=== PATIENT | female | born 1935 | race Caucasian/White ===

== ENCOUNTER → 2017-03-05 | Outpatient (CLI) | payer OTHER ==
[~2017-03-05] MED LIST: AMIT50TA3 PO; ASPCH81X PO; INSHI7030 SC; INSHRI SC; NAPR220T40 PO; OTC ALLERGY
[2017-03-05 13:11] LABS: ESTIMATED AVERAGE GLUCOSE 154 mg/dl; HA1C FLAG Normal (Normal)
[2017-03-05 14:12] LABS: ALB/GLOB RATIO 1.2 (0.9-2); ALKALINE PHOSPHATASE 42 U/L (45-117); ALT/SGPT 59 U/L (12-78); AST/SGOT 39 U/L (15-37); BLOOD UREA NITROGEN 21 mg/dl (7-18); BUN/CREATININE RATIO 30.7 (10-20); CALCIUM 8.7 mg/dl (8.5-10.1); CARBON DIOXIDE 28 mmol/L (21-32); CHLORIDE 112 mmol/L (98-107); CHOLESTEROL 147 mg/dl (0-200); CHOLESTEROL/HDL RATIO 2.3; CREATININE 0.67 mg/dl (0.60-1.20); GLUCOSE 85 mg/dl (70-99); HDL CHOLESTEROL 65 mg/dl; POTASSIUM 3.8 mmol/L (3.5-5.1); SODIUM 145 mmol/L (136-145)
[2017-03-05 14:16] LABS: LDL CHOLESTEROL CALCULATED 67 mg/dl; TRIGLYCERIDES 74 mg/dl (0-150); VERY LOW DENSITY LIPOPROT CALC 15 mg/dl
== END | disposition home or self-care (01) ==
LOC: C.LABPVFM 08:02
PROVIDERS: ATTEND Nurse Practitioner Family
DX: M79.1 Myalgia (principal); E78.5 Hyperlipidemia, unspecified; E11.59 Type 2 diabetes mellitus with other circulatory complications; I10 Essential (primary) hypertension

== ENCOUNTER → 2017-06-19 | Outpatient (CLI) | payer OTHER | END | disposition home or self-care (01) | LOC: C.LABPVFM 10:04 | PROVIDERS: ATTEND Nurse Practitioner Family | DX: E55.9 Vitamin D deficiency, unspecified (principal) ==

== ENCOUNTER → 2017-09-03 | Outpatient (CLI) | payer OTHER ==
[2017-09-03 13:30] LABS: ALT/SGPT 50 U/L (12-78); AST/SGOT 29 U/L (15-37); BLOOD UREA NITROGEN 17 mg/dl (7-18); BUN/CREATININE RATIO 24.1 (10-20); CALCIUM 8.4 mg/dl (8.5-10.1); CARBON DIOXIDE 27 mmol/L (21-32); CHLORIDE 111 mmol/L (98-107); CREATININE 0.72 mg/dl (0.60-1.20); GLUCOSE 112 mg/dl (70-99); HDL CHOLESTEROL 64 mg/dl; POTASSIUM 3.8 mmol/L (3.5-5.1); SODIUM 144 mmol/L (136-145)
[2017-09-03 13:33] LABS: ESTIMATED AVERAGE GLUCOSE 146 mg/dl; HA1C FLAG Normal (Normal)
[2017-09-03 13:34] LABS: ALB/GLOB RATIO 1.1 (0.9-2); ALKALINE PHOSPHATASE 44 U/L (45-117); CHOLESTEROL 129 mg/dl (0-200); LDL CHOLESTEROL CALCULATED 48 mg/dl; TRIGLYCERIDES 83 mg/dl (0-150); VERY LOW DENSITY LIPOPROT CALC 17 mg/dl
== END | disposition home or self-care (01) ==
LOC: C.LABPVFM 08:14
PROVIDERS: ATTEND Nurse Practitioner Family
DX: E11.9 Type 2 diabetes mellitus without complications (principal)

== ENCOUNTER → 2018-03-04 | Outpatient (CLI) | payer OTHER ==
[2018-03-04 13:03] LABS: ALBUMIN 3.1 gm/dl (3.4-5.0); ALT/SGPT 32 U/L (12-78); AST/SGOT 23 U/L (15-37); BLOOD UREA NITROGEN 21 mg/dl (7-18); CALCIUM 8.4 mg/dl (8.5-10.1); CARBON DIOXIDE 28 mmol/L (21-32); CREATININE 0.85 mg/dl (0.60-1.20); GLUCOSE 89 mg/dl (70-99); SODIUM 143 mmol/L (136-145)
[2018-03-04 13:06] LABS: ALKALINE PHOSPHATASE 43 U/L (45-117); CHOLESTEROL 130 mg/dl (0-200); LDL CHOLESTEROL CALCULATED 54 mg/dl; TOTAL PROTEIN 6.1 gm/dl (6.4-8.2)
[2018-03-04 13:09] LABS: HEMOGLOBIN A1C 6.8 % (4.5-5.6)
== END | disposition home or self-care (01) ==
LOC: C.LABPVFM 08:01
PROVIDERS: ATTEND Nurse Practitioner Family
DX: I10 Essential (primary) hypertension (principal); E11.9 Type 2 diabetes mellitus without complications; E78.5 Hyperlipidemia, unspecified

== ENCOUNTER 2023-01-17 14:53 | Inpatient (IN) ==
[2023-01-17 17:56] LABS: Albumin Globulin Ratio 1.3 (0.9-2); Albumin Level 3.3 gm/dl (3.4-5.0); BUN Creatinine Ratio 31.8 (10-20); Bilirubin,Total 0.4 mg/dl (0.2-1.0); Calcium 9.4 mg/dl (8.6-10.3); Creatinine Clr Calc Pharmacy 40.5 ml/min; Est GFR (African American) 68.5 ml/min; Est GFR (Non-African American) 59.1 ml/min; Globulin 2.5 gm/dl (2.5-4.0); Magnesium 1.9 mg/dl (1.7-2.4); Potassium 3.6 mmol/L (3.5-5.1); Total Protein 5.8 gm/dl (6.0-8.3)
[2023-01-17 18:02] LABS: Troponin I High Sensitivity 19.3 pg/ml (0-14)
--- NOTE | 2023-01-17 18:09 | Emergency Department Note ---
Impression & Plan Stroke-like symptom, Urinary tract infection, Weakness ED Provider Note NAME: MAN CHARLES AGE: 87 SEX: F : 1935 ARRIVES VIA: Ambulance INFORMANT: Patient, the patient's son ED PROVIDER(S): Srinivasan Wynn DO CHIEF COMPLAINT: Weakness HPI: The patient is an 87-year-old female who presented to the emergency department with her son for an evaluation of generalized weakness. The patient's had worsening generalized weakness over the course of the last 2 weeks. His son has noticed that she has been having more difficulty transferri ng and thinks that she may have a stroke. He has noticed a significant change in her weakness especially over the last 48 hours. There is been no reported chest pain or vomiting. The patient's son called her research nutritionist and they were advised to come the emergency department presumably for possible placement. The patient's son noticed that she had numbness over the right side of her face and appeared to have a drooping eyelid. ROS: See above HPI for pertinent positives & negatives. A total of 10 systems reviewed and were otherwise negative. PAST MEDICAL HISTORY: See Below PAST SURGICAL HISTORY: See Below FAMILY HISTORY: See Below SOCIAL HISTORY: See Below HOME MEDICATIONS: See Below ALLERGIES: See Below VITALS: See Below PHYSICAL EXAMINATION: GENERAL: The patient is awake and answers questions appropriately. She is very listless. EYES: The conjunctivae are clear. The pupils are round and reactive. EARS, NOSE, MOUTH AND THROAT: The nose is without any evidence of any deformity. NECK: The neck is nontender and supple. RESPIRATORY: Normal respiratory effort is noted there is no evidence of wheezing rhonchi or rales CARDIOVASCULAR: Regular rate and rhythm were noted to auscultation. Systolic murmur suggested. GASTROINTESTINAL: The abdomen is soft. Abdomen is nontender. MUSCULOSKELETAL/EXTREMITIES: There is no evidence of gross deformity full range of motion is noted in the hips and shoulders. SKIN: There is no obvious evidence of any rash. the skin was warm and dry. There is trace pedal edema bilaterally. NEUROLOGIC: Patient is awake and oriented to person place and situation. Strength was symmetric but diminished. Voice is soft. MEDICAL DECISION MAKING: The patient is an 87-year-old female who presented to the emergency department with her son for an evaluation of generalized weakness and strokelike symptoms. The patient's son describes an episode that occurred earlier that could be consistent with stroke. The patient had generalized weakness on my physical exam. She was slow to respond to questioning but did not appear to be overly lethargic. She was not febrile. I discussed the patient's laboratory and radiographic studies with her and her family member. It sounds though the patient does not want many interventions. She refused an IV line. She was treated with oral antibiotics for presumed urinary tract infection noted on urinalysis. [facility] have agreed to evaluate the patient in the emergency department for further management and disposition. Triage Nursing notes reviewed. Prior medical records reviewed Vital Signs: reviewed and remarkable for bradycardia and elevated blood pressure. Differential diagnosis: Infection, dehydration, metabolic abnormality, hypo/hyperglycemia, electrolyte disturbance, anemia, hypoxia, cardiac sources, intracerebral event, toxicologic, neurologic, as well as other pathologies. ER treatment provided: See below Diagnostics interpreted by me: ECG: EKG was obtained in the emergency department. My interpretation is sinus bradycardia 51 bpm. Right bundle-branch block pattern was noted. This was compared to a tracing from September 14, 2012. The bundle branch block is new compared to the previous tracing. There is no PVCs. Cardiac Monitoring: An order was placed for continuous cardiac monitoring. The monitor shows a rate of 54 bpm with sinus bradycardia. Laboratory studies: As stated above and show below. Imaging studies: See below. Radiographic imaging was reviewed by myself Consultation(s): I discussed this case with Wilder who is on for [facility]. Past Med/Surg History Medical History Benign hypertension CAD (coronary artery disease) DM (diabetes mellitus), type 2 Hyperlipidemia Peripheral edema Surgical History History of appendectomy History of hysterectomy Hx laparoscopic cholecystectomy Status post open reduction and internal fixation (ORIF) of fracture Posterior Dislocation of Pelvic Ring Status post open reduction with internal fixation of fracture Pelvic Ring Family History Sister Colorectal cancer Lung cancer Family/Other Bladder cancer Denies family history of Ovarian cancer Myocardial infarction Breast cancer Social History Smoking Status: Never smoker Second Hand Exposure: No; Hx Alcohol Use: No Hx Substance Use: No Preferred Language: Lithuanian Communication Ability: Effective Visual Impairment: No Limitations Hearing Ability: Normal Carpenter General Required: No Beliefs That Will Affect Care: None marital status: / Current Living Situation: Family current occupational status: retired Feels Safe at Home: Yes Safety Concerns: Feels Safe At This Time Physical Activity Frequency: Does not Exercise Seatbelt Use: always Assistive Devices: Glasses and Walker Allergies Allergies Allergy/AdvReac Type Severity Reaction Status Date / Time codeine Allergy Unknown GI UPSET Verified 10/22/22 11:06 AND SOB PER PT iodine Allergy Unknown Verified 10/22/22 11:06 Penicillins Allergy Unknown Verified 10/22/22 11:06 Sulfa (Sulfonamide Allergy Unknown Verified 10/22/22 11:06 Antibiotics) Home Meds Home Medications Medication Instructions Recorded Confirmed cholecalciferol (vitamin D3) 75 3,000 units PO DAILY 05/27/19 01/17/23 mcg (3,000 unit) tablet aspirin 81 mg tablet,delayed 81 mg PO DAILY 06/15/20 01/17/23 release vitamins A,C,R-atsb-tyfqan 4,296 1 cap PO BID 06/15/20 01/17/23 mcg-226 mg-90 mg capsule (PreserVision AREDS) bimatoprost 0.01 % eye drops 1 drp OPR HS 01/17/23 01/17/23 (Lumigan) timolol maleate 0.5 % eye drops 1 drp OPR QAM 01/17/23 01/17/23 Previous Rx's Medication Instructions Recorded Wheelchair (Manual) (Manual #1 ea 07/21/19 Wheelchair) pen needle, diabetic 32 gauge x #200 ea 02/21/22 1" (BD Ultra-Fine Micro Pen Needle) amlodipine 5 mg tablet 5 mg PO DAILY #90 tabs 09/23/22 hydrochlorothiazide 25 mg tablet 25 mg PO DAILY #90 tabs 09/23/22 insulin glargine 100 unit/mL (3 22 unit (0.22 mL) subcut DAILY #20 10/22/22 mL) subcutaneous pen (Basaglar mL KwikPen U-100 Insulin) blood sugar diagnostic (Clearwell Systemsuch #200 ea 11/04/22 Ultra Test strips) blood-glucose meter (iGoOn s.r.l.Touch #1 ea 11/04/22 Ultra2 Meter) amitriptyline 50 mg tablet 50 mg PO BID #180 tabs 12/06/22 isosorbide mononitrate 120 mg 240 mg PO DAILY #180 tabs 12/13/22 tablet,extended release 24 hr Results & Data (ED) Vital Signs Vital Signs - 24 hr 01/17/23 15:01 01/17/23 15:01 01/17/23 16:15 Temperature 36.8 C Temperature Source Oral Pulse Rate 55 L 52 L Pulse Rate [Apical] 55 L Pulse Rate from SpO2 Sensor Respiratory Rate 20 20 Respiratory Effort / Characteristics Non-Labored Spontaneous Non-Labored Spontaneous Respiratory Depth Normal Normal Respiratory Pattern Regular Regular Blood Pressure 189/65 H Blood Pressure [Right Arm] 189/65 H Blood Pressure Mean 106 Blood Pressure Mean [Right Arm] 106 Pulse Oximetry 97 97 Oxygen Delivery Method Room Air Room Air Sepsis Recent Fever Within 48 Hours No Sepsis New/Unexplained Change in Mental Status No Sepsis Action Taken by Nursing No Action Required 01/17/23 15:30 01/17/23 16:00 01/17/23 17:00 Temperature Temperature Source Pulse Rate 53 L 53 L 50 L Pulse Rate [Apical] Pulse Rate from SpO2 Sensor 53 L 54 L Respiratory Rate 19 19 18 Respiratory Effort / Characteristics Respiratory Depth Respiratory Pattern Blood Pressure 178/63 H 185/86 H 183/67 H Blood Pressure [Right Arm] Blood Pressure Mean 101 119 105 Blood Pressure Mean [Right Arm] Pulse Oximetry 96 95 97 Oxygen Delivery Method Room Air Room Air Room Air Sepsis Recent Fever Within 48 Hours Sepsis New/Unexplained Change in Mental Status Sepsis Action Taken by Nursing 01/17/23 18:01 01/17/23 19:39 01/17/23 20:16 Temperature Temperature Source Pulse Rate 51 L 54 L Pulse Rate [Apical] 50 L Pulse Rate from SpO2 Sensor Respiratory Rate 17 16 Respiratory Effort / Characteristics Non-Labored Spontaneous Respiratory Depth Normal Respiratory Pattern Regular Blood Pressure 200/70 H Blood Pressure [Right Arm] 185/77 H Blood Pressure Mean 113 Blood Pressure Mean [Right Arm] 113 Pulse Oximetry 97 99 Oxygen Delivery Method Room Air Room Air Sepsis Recent Fever Within 48 Hours Sepsis New/Unexplained Change in Mental Status Sepsis Action Taken by Long-Term Medications Current Medication List: was personally reviewed by me Laboratory Data Attestation: I reviewed the patient's lab results. 01/17/23 15:51 01/17/23 15:51 Lab Results 01/17/23 01/17/23 01/17/23 Range/Units 15:51 15:51 15:51 WBC 5.78 (4.8-10.8) K/ul RBC 3.65 L (4.20-5.40) M/uL Hgb 11.5 L (12.0-16.0) g/dl Hct 34.5 L (37.0-47.0) % MCV 94.5 (80.0-100.0) fL MCH 31.5 (25.0-34.0) pg MCHC 33.3 (32.0-36.0) g/dL RDW Std Deviation 44.6 (36.4-46.3) fL RDW Coeff of Bertha 12.8 (11.5-14.5) % Plt Count 237 (130-400) K/uL MPV 11.3 (9.4-12.4) fL Immature Gran % (Auto) 0.0 % Neut % (Auto) 36.3 % Lymph % (Auto) 48.8 % [place] % (Auto) 9.2 % Eos % (Auto) 5.0 % Baso % (Auto) 0.7 % Neut # (Auto) 2.10 (1.40-6.50) K/uL Lymph # (Auto) 2.82 (1.2-3.4) K/uL [place] # (Auto) 0.53 (0.11-0.59) K/uL Eos # (Auto) 0.29 (0-0.50) K/uL Baso # (Auto) 0.04 (0-0.2) K/uL Immature Gran # (Auto) 0.00 L (0.01-0.20) K/uL PT 11.3 (9.0-12.0) Seconds INR 1.1 (0.9-1.1) APTT 27.3 (21.0-31.0) Seconds PTT Ratio 1.0 Sodium 140 (136-145) mmol/L Potassium 3.6 (3.5-5.1) mmol/L Chloride 108 H (98-107) mmol/L Carbon Dioxide 28 (21-32) mmol/L Anion Gap 4 (3-11) BUN 28 H (6-23) mg/dl Creatinine 0.88 (0.6-1.2) mg/dl Est Cr Clr Drug Dosing 40.5 ml/min Est GFR ( Amer) 68.5 ml/min Est GFR (Non-Af Amer) 59.1 ml/min BUN/Creatinine Ratio 31.8 H (10-20) Glucose 107 H (70-99(Fasting)) mg/dl Calcium 9.4 (8.6-10.3) mg/dl Magnesium 1.9 (1.7-2.4) mg/dl Total Bilirubin 0.4 (0.2-1.0) mg/dl AST 12 L (13-39) U/L ALT 8 (7-52) U/L Alkaline Phosphatase 32 L (34-104) U/L Troponin I High Sens 19.3 H (0-14) pg/ml Total Protein 5.8 L (6.0-8.3) gm/dl Albumin 3.3 L (3.4-5.0) gm/dl Globulin 2.5 (2.5-4.0) gm/dl Albumin/Globulin Ratio 1.3 (0.9-2) Urine Color Urine Appearance (Clear) Urine pH (4.5-7.5) Ur Specific [place] (1.000-1.030) Urine Protein (Negative) Urine Glucose (UA) (Negative) Urine Ketones (Negative) Urine Blood (Negative) Urine Nitrite (Negative) Urine Bilirubin (Negative) Urine Urobilinogen (Negative) Ur Leukocyte Esterase (Negative) Urine WBC (Auto) (0-5) /hpf Urine RBC (Auto) (0-4) /hpf U Hyaline Cast (Auto) (0-5) /lpf U Epithel Cells (Auto) (0-5) /lpf Urine Bacteria (Auto) (Negative) SARS-CoV-2, RNA, NAAT (NEGATIVE) 01/17/23 01/17/23 Range/Units 18:40 18:40 WBC (4.8-10.8) K/ul RBC (4.20-5.40) M/uL Hgb (12.0-16.0) g/dl Hct (37.0-47.0) % MCV (80.0-100.0) fL MCH (25.0-34.0) pg MCHC (32.0-36.0) g/dL RDW Std Deviation (36.4-46.3) fL RDW Coeff of Bertha (11.5-14.5) % Plt Count (130-400) K/uL MPV (9.4-12.4) fL Immature Gran % (Auto) % Neut % (Auto) % Lymph % (Auto) % [place] % (Auto) % Eos % (Auto) % Baso % (Auto) % Neut # (Auto) (1.40-6.50) K/uL Lymph # (Auto) (1.2-3.4) K/uL [place] # (Auto) (0.11-0.59) K/uL Eos # (Auto) (0-0.50) K/uL Baso # (Auto) (0-0.2) K/uL Immature Gran # (Auto) (0.01-0.20) K/uL PT (9.0-12.0) Seconds INR (0.9-1.1) APTT (21.0-31.0) Seconds PTT Ratio Sodium (136-145) mmol/L Potassium (3.5-5.1) mmol/L Chloride (98-107) mmol/L Carbon Dioxide (21-32) mmol/L Anion Gap (3-11) BUN (6-23) mg/dl Creatinine (0.6-1.2) mg/dl Est Cr Clr Drug Dosing ml/min Est GFR ( Amer) ml/min Est GFR (Non-Af Amer) ml/min BUN/Creatinine Ratio (10-20) Glucose (70-99(Fasting)) mg/dl Calcium (8.6-10.3) mg/dl Magnesium (1.7-2.4) mg/dl Total Bilirubin (0.2-1.0) mg/dl AST (13-39) U/L ALT (7-52) U/L Alkaline Phosphatase (34-104) U/L Troponin I High Sens (0-14) pg/ml Total Protein (6.0-8.3) gm/dl Albumin (3.4-5.0) gm/dl Globulin (2.5-4.0) gm/dl Albumin/Globulin Ratio (0.9-2) Urine Color Yellow Urine Appearance Cloudy A (Clear) Urine pH 6.0 (4.5-7.5) Ur Specific [place] 1.012 (1.000-1.030) Urine Protein Negative (Negative) Urine Glucose (UA) Negative (Negative) Urine Ketones Negative (Negative) Urine Blood 1+ H (Negative) Urine Nitrite Positive A (Negative) Urine Bilirubin Negative (Negative) Urine Urobilinogen Negative (Negative) Ur Leukocyte Esterase 2+ H (Negative) Urine WBC (Auto) 10-30 H (0-5) /hpf Urine RBC (Auto) 5-10 H (0-4) /hpf U Hyaline Cast (Auto) 0 (0-5) /lpf U Epithel Cells (Auto) 5-10 H (0-5) /lpf Urine Bacteria (Auto) 2+ H (Negative) SARS-CoV-2, RNA, NAAT NEGATIVE (NEGATIVE) Administered Medications Amitriptyline HCl (Amitriptyline Hcl 50 Mg Tab) 50 mg PO BID [facility] Stop: 02/16/23 22:23 Last Admin: 01/18/23 09:01 Dose: 50 mg Documented By: Admin: 01/17/23 23:38 Dose: 50 mg Documented By: JOSEFINA Amlodipine Besylate (Amlodipine Besylate 5 Mg Tab) 5 mg PO DAILY [facility] Stop: 02/17/23 08:59 Last Admin: 01/18/23 09:01 Dose: 5 mg Documented By: ROHAN Aspirin (Aspirin 81 Mg Ectab) 81 mg PO DAILY [facility] Stop: 02/17/23 08:59 Last Admin: 01/18/23 09:01 Dose: 81 mg Documented By: ROHAN Hydrochlorothiazide (Hydrochlorothiazide 25 Mg Tab) 25 mg PO DAILY [facility] Stop: 02/17/23 08:59 Last Admin: 01/18/23 09:01 Dose: 25 mg Documented By: ROHAN Insulin Aspart (Insulin Aspart Per Unit Charge) 0 units SC Q6H [facility] Stop: 02/16/23 20:44 Last Admin: 01/18/23 02:48 Dose: Not Given Documented By: Admin: 01/17/23 20:56 Dose: Not Given Documented By: AMINAH Co-signed By: ZHANNA Insulin Glargine (Lantus Per Unit Charge) 5 units SQ BID [facility] Stop: 02/16/23 20:59 Last Admin: 01/18/23 09:11 Dose: 5 units Documented By: Admin: 01/17/23 23:35 Dose: Not Given Documented By: JOSEFINA Isosorbide Mononitrate (Isosorbide [place] Extended Rel 60 Mg Tabcr) 240 mg PO DAILY [facility] Stop: 02/17/23 08:59 Last Admin: 01/18/23 09:01 Dose: 240 mg Documented By: ROHAN Timolol Maleate (Timolol Maleate 0.5% Op Soln 5 Ml Btl) 1 drops OP QAM [facility] Stop: 02/17/23 08:59 Last Admin: 01/18/23 09:13 Dose: 1 drops Documented By: ROHAN Discontinued Medications Cefdinir (Cefdinir 300 Mg Cap) 600 mg PO ONE STA Stop: 01/17/23 19:37 Last Admin: 01/17/23 19:44 Dose: 600 mg Documented By: AMINAH Cefdinir (Cefdinir 300 Mg Cap) 300 mg PO Q12H [facility] Stop: 01/22/23 08:59 Last Admin: 01/17/23 23:31 Dose: Not Given Documented By: Admin: 01/17/23 23:22 Dose: Not Given Documented By: JOSEFINA Cefdinir (Cefdinir 300 Mg Cap) 300 mg PO Q12H [facility] Stop: 01/23/23 08:59 Last Admin: 01/18/23 09:01 Dose: 300 mg Documented By: ROHAN Gadobutrol (Gadobutrol 65ml Vial) 6.5 ml IV ONCE ONE Stop: 01/17/23 21:27 Last Admin: 01/17/23 21:26 Dose: 6.5 ml Documented By: ÁNGEL Ceftriaxone Sodium (Rocephin) 2,000 mg in 70 mls @ 140 mls/hr IV NOW STA Stop: 01/17/23 19:58 Last Admin: 01/17/23 19:48 Dose: Not Given Documented By: AMINAH Imaging Data Attestation: I personally reviewed and interpreted this imaging study as follows: My Impression: 1 view chest x-ray was obtained in the emergency department. My interpretation is no free air, no definite infiltrate, final report below. CT of the head was obtained in the emergency department. My interpretation is no intracranial hemorrhage, no mass effect, final report below. Radiologist's Impression: Chest X-Ray 01/17/23 17:17 SINGLE VIEW CHEST CLINICAL HISTORY: Strokelike symptoms. Neurological deficit. FINDINGS: An AP, portable, upright chest radiograph is obtained. No prior studies are available for comparison at the time of dictation. There are calcified mediastinal and hilar lymph nodes. The cardiomediastinal silhouette is top normal for projection noting atherosclerotic calcification of the thoracic aorta. The pulmonary vasculature is noncongested. Mild scarring/atelectasis is noted at the lung bases. There are scattered calcified granulomas. No airspace consolidation or large pleural effusion is identified. No pneumothorax is seen. The skeletal structures are osteopenic. The bony thorax is grossly intact. Degenerative change is noted in the spine. IMPRESSION: No acute cardiopulmonary abnormality. ACT 112: Negative or not required by law. Electronically signed by: Prasanna Cooper M.D. 01/17/2023 6:[address] 01/17/23 17:17 Exam(s): CT HEAD Without Contrast EXAM: CT Head Without Intravenous Contrast CLINICAL HISTORY: Fall TECHNIQUE: Axial computed tomography images of the head/brain without intravenous contrast. CTDI is 37.69 mGy and DLP is 614.27 mGy-cm. Automated exposure control was utilized for the study. A dose lowering technique was utilized adhering to the principles of ALARA. COMPARISON: 09/14/12. FINDINGS: There is no intracranial hemorrhage or mass-effect. No clear acute large vessel territory infarct. Involutional and microvascular ischemic changes. Ventricular size is felt to be commensurate with atrophy. Atherosclerosis of skull base arteries. The calvarium is intact. Minimal paranasal sinus mucosal thickening. No sinus or mastoid effusion. Ocular lens prostheses. IMPRESSION: No acute brain or skull injury. Electronically signed by: Allan Molina M.D. 01/17/23 19:[address] 01/17/23 17:18 Exam(s): CT C SPINE EXAM: CT Cervical Spine Without Intravenous Contrast CLINICAL HISTORY: Reason for exam: fall. TECHNIQUE: Axial computed tomography images of the cervical spine without intravenous contrast. CTDI is 16.17 mGy and DLP is 308.58 mGy-cm. Automated exposure control was utilized for the study. A dose lowering technique was utilized adhering to the principles of ALARA. COMPARISON: No relevant prior studies available. FINDINGS: Vertebrae: No acute fracture. Discs/spinal canal/neural foramina: Multilevel spondylosis including disc degeneration and facet and uncovertebral arthropathy. Soft tissues: Extensive atherosclerotic calcification. Nodular thyroid gland with calcifications.. IMPRESSION: No acute fracture Electronically signed by: Allan Molina M.D. 01/17/23 19:51 PM Discharge Plan Visit Data Chief Complaint: Illness Stated Complaint: WEAKNESS, DIZZINESS, EVAL FOR POSS. PLACEMENT ED Provider: Srinivasan Wynn Discharge Problem: Stroke-like symptom, Urinary tract infection, Weakness Patient Disposition: Admitted As Inpatient Discharge Instructions Interventions: ED Discharge Assessment Last Done: 01/17/23 21:19 Urinary tract infection Qualifiers: Urinary tract infection type: site unspecified Hematuria presence: without hematuria Qualified Code(s): N39.0 - Urinary tract infection, site not specified
[2023-01-17 18:14] LABS: Basophils # (auto) 0.04 K/uL (0-0.2); Basophils % (auto) 0.7 %; Eosinophils # (auto) 0.29 K/uL (0-0.50); Hematocrit (blood only) 34.5 % (37.0-47.0); Hemoglobin 11.5 g/dl (12.0-16.0); Lymphocytes # (auto) 2.82 K/uL (1.2-3.4); Lymphocytes % (auto) 48.8 %; Mean Corpuscular Hemoglobin 31.5 pg (25.0-34.0); Mean Corpuscular Hgb Conc 33.3 g/dL (32.0-36.0); Mean Corpuscular Volume 94.5 fL (80.0-100.0); Mean Platelet Volume 11.3 fL (9.4-12.4); Monocytes # (auto) 0.53 K/uL (0.11-0.59); Monocytes % (auto) 9.2 %; Neutrophils % (auto) 36.3 %; Platelet Count 237 K/uL (130-400); RDW Coefficient of Variation 12.8 % (11.5-14.5); RDW Standard Deviation 44.6 fL (36.4-46.3); Red Blood Count 3.65 M/uL (4.20-5.40); White Blood Count 5.78 K/ul (4.8-10.8)
[2023-01-17 18:16] LABS: INR 1.1 (0.9-1.1); Partial Thromboplastin Time 27.3 Seconds (21.0-31.0); Prothrombin Time 11.3 Seconds (9.0-12.0)
--- NOTE | 2023-01-17 18:27 | XRay Report ---
SINGLE VIEW CHEST CLINICAL HISTORY: Strokelike symptoms. Neurological deficit. FINDINGS: An AP, portable, upright chest radiograph is obtained. No prior studies are available for c omparison at the time of dictation. There are calcified mediastinal and hilar lymph nodes. The cardio mediastinal silhouette is top normal for projection noting atherosclerotic calcification of the thora cic aorta. The pulmonary vasculature is noncongested. Mild scarring/atelectasis is noted at the lung bases. There are scattered calcified granulomas. No airspace consolidation or large pleural effusion is identified. No pneumothorax is seen. The skeletal structures are osteopenic. The bony thorax is gr ossly intact. Degenerative change is noted in the spine. IMPRESSION: No acute cardiopulmonary abnormality. ACT 112: Negative or not required by law. Electronically signed by: Prasanna Cooper M.D. 01/17/2023 6:26 PM
[2023-01-17 18:56] LABS: Appearance Urine Cloudy (Clear); Bacteria Urine Automated 2+ (Negative); Bilirubin Urine Negative (Negative); Blood Urine 1+ (Negative); Cast Urine Automated 0 /lpf (0-5); Color Urine Yellow; Glucose Urine UA Negative (Negative); Ketones Urine Negative (Negative); Leukocyte Esterase Urine 2+ (Negative); Nitrite Urine Positive (Negative); Protein Urine Negative (Negative); Specific Gravity Urine 1.012 (1.000-1.030); Urobilinogen Urine Negative (Negative)
[2023-01-17] MEDS ORDERED: cefTRIAXone SODIUM 2,000 MG/70 ML BAG IV STA (19:29)
[2023-01-17] MEDS ORDERED: CEFDINIR 300 MG CAP PO STA (19:36)
--- NOTE | 2023-01-17 19:44 | CT Scan Report ---
Exam(s): CT HEAD Without Contrast EXAM: CT Head Without Intravenous Contrast CLINICAL HISTORY: Fall TECHNIQUE: Axial computed tomography images of the head/brain without intravenous contrast. CTDI is 37.69 mGy and DLP is 614.27 mGy-cm. Automated exposure control was utilized for the study. A dose lowering technique was utilized adhering to the principles of ALARA. COMPARISON: 09/14/12. FINDINGS: There is no intracranial hemorrhage or mass-effect. No clear acute large vessel territory infarct. Involutional and microvascular ischemic changes. Ventricular size is felt to be commensurate with atrophy. Atherosclerosis of skull base arteries. The calvarium is intact. Minimal paranasal sinus mucosal thickening. No sinus or mastoid effusion. Ocular lens prostheses. IMPRESSION: No acute brain or skull injury. Electronically signed by: Allan Molina M.D. 01/17/23 19:43 PM
--- NOTE | 2023-01-17 19:52 | CT Scan Report ---
Exam(s): CT C SPINE EXAM: CT Cervical Spine Without Intravenous Contrast CLINICAL HISTORY: Reason for exam: fall. TECHNIQUE: Axial computed tomography images of the cervical spine without intravenous contrast. CTDI is 16.17 mGy and DLP is 308.58 mGy-cm. Automated exposure control was utilized for the study. A dose lowering technique was utilized adhering to the principles of ALARA. COMPARISON: No relevant prior studies available. FINDINGS: Vertebrae: No acute fracture. Discs/spinal canal/neural foramina: Multilevel spondylosis including disc degeneration and facet and uncovertebral arthropathy. Soft tissues: Extensive atherosclerotic calcification. Nodular thyroid gland with calcifications.. IMPRESSION: No acute fracture Electronically signed by: Allan Molina M.D. 01/17/23 19:51 PM
[2023-01-17] MEDS ORDERED: PHARMACIST DISCHARGE MED REC CONSULT PRN (20:26)
[2023-01-17] MEDS ORDERED: GLUCAGON FOR INJ 1 MG VIAL SQ PRN (20:31)
[2023-01-17] MEDS ORDERED: CARBOHYDRATES FOR HYPOGLYCEMIA PO PRN (20:31)
[2023-01-17] MEDS ORDERED: GLUCOSE 40% GEL 15 GM TUBE PO PRN (20:31)
[2023-01-17] MEDS ORDERED: DEXTROSE 50% 50 ML SYRINGE IV PRN (20:31)
[2023-01-17] MEDS ORDERED: GLUCOSE 10 TAB/TUBE PO PRN (20:31)
--- NOTE | 2023-01-17 20:32 | History & Physical Report ---
Date of Service January 17, 2023 Assessment & Plan (1) Fall: Plan: -Admit to med/tele -The patient is currently afebrile, hemodynamically stable, and stable on RA -Sustained a fall this am while getting back into bed, did hit her head but no acute trauma noted on CT of the head, CT cervical spine and chest xray -Will obtain an xray of the hips/pelvis to rule out possible hip frx -Continue to monitor on tele for now -Will obtain an MRI of the brain WO con and TTE for further assessment -Fall precautions, aspirations, dysphagia screen ordered -PT/OT consults placed with Case Management consult - SCD's for DVT PPX as the patient does not want Sub-Q DVT PPX -AM CBC and BMP (2) UTI (urinary tract infection): Plan: -Patient has been experiencing dysuria and urinary frequency -UA today appears infected -Patient does not want an IV or IV medications -Was given a dose of PO Cefdinir in the ED, will continue Cefdinir 300 mg PO BID for 5 days -Follow urine cultures and tailor abx to results (3) Elevated troponin: Plan: -Initial high sen trop elevated at 19.3, patient is without acute chest pain -No ECG available at the time of the admission, will obtain one STAT -Mild trop elevation likely due to demand, will repeat another high sen trop now -Continue to monitor on tele (4) Ambulatory dysfunction: Plan: -See fall (5) CAD (coronary artery disease): Plan: -Continue aspirin (6) Benign hypertension: Plan: -Stable -Continue HCTZ, amlodipine, and Imdur (7) DM (diabetes mellitus), type 2: Plan: -Monitor BSG q6h until she passes dysphagia screen and diet is started -5 units lantus BID, correction factor of 50 and carb ratio of 15 -DM II diet when passes dysphagia screen -Adjust regimen as needed Plan The patient was discussed with Dr. Sosa at the time of the admission History of Present Illness Chief Complaint: Fall, ambulatory dysfunction Primary Care Provider: Jasmin Rowley MD Samantha Winston is an 87 year old female with a PMH significant for HTN, dyslipidemia (no longer on statin therapy due to patient preference), DM II, and CAD who presented to the [facility] ED via EMS on 01/17/23 due to a fall and ambulatory dysfunction. In the ED the patient was found to be afebrile, hemodynamically stable, and stable on RA. Labs were remarkable for a WBC WNL, stable Hgb at 11.5, stable platelets, stable cr at 0.88, chloride of 108, glucose of 107, Alk phos of 32, AST of 12, ALT and total bili WNL, UA indicative of acute UTI, and covid negative. Chest xray was read as "No acute cardiopulmonary abnormality.". CT of the head was read as "No acute brain or skull injury.". CT of the cervical spine was read as "No acute fracture". Prior to admission the patient was given a dose of PO Cefdinir. At the time of the exam the patient was resting in bed in no acute distress with her Son/POA sitting bedside, history was obtained from both. Her son explains that the patient has been having progressive weakness and ambulatory dysfunction over the past two weeks. She currently lives at home with he and his but is normally fairly independent with her ADLs. She lives in the lower floor of their house and uses a rolling walker to ambulate at baseline. Her son states that they have been on the waiting list for [facility] since September for their long-term living facility. He states that this am the patient had a fall while walking back from the bathroom to her bed. The patient explains that she walked back to her bed, which has side-rails, and attempted to get back into bed by grabbing the side rail with her right hand. Unfortunately, due to her weakness her hand slip and she fell to the ground. She states that she hit the right side of her head and did not lose consciousness. She was able to lift herself back into bed without any assistance. When her son woke up he came down to check on her and she was too weak to get out of bed. He thought he noticed drooping of her right eyelid and she felt numbness on her right upper and lower extremity when he tested her sensation. He called her PCP who recommended she go to the ED for further evaluation. He also called her Test Examiner, Dr. Mansfield, who recommended she be evaluated in the ED. The patient's son and his are unable to care for the patient at this time due to her increased ambulatory dysfunction. They would like her to be admitted for placement in [facility]. When asked, the patient has been experiencing dysuria and increased urinary frequency. I had a long discussion with the patient and her son regarding goals of care as there had been some confusion as to her wishes on intake. The patient has a living will and her son is her POA, he brought the documentation with him. The patient is a DNR/DNI and does not want excessive treatment at this time. She does not want an IV, IV fluids, or IV medications. She is fine with oral antibiotics and medications for easily treatable medical conditions which are causing her distress. She is still ok with blood draws for needed labs and blood glucose checks with insulin as needed. She is NOT on comfort measures or on hospice at this time. Please refer to Dr. Sosa's attestation for any changes to the treatment plan Allergies Allergy/AdvReac Type Severity Reaction Status Date / Time codeine Allergy Unknown GI UPSET Verified 10/22/22 11:06 AND SOB PER PT iodine Allergy Unknown Verified 10/22/22 11:06 Penicillins Allergy Unknown Verified 10/22/22 11:06 Sulfa (Sulfonamide Allergy Unknown Verified 10/22/22 11:06 Antibiotics) Home Medications Medication Instructions Recorded Confirmed Type cholecalciferol (vitamin D3) 75 3,000 units PO DAILY 05/27/19 01/17/23 History mcg (3,000 unit) tablet Wheelchair (Manual) (Manual #1 ea 07/21/19 01/17/23 Rx Wheelchair) aspirin 81 mg tablet,delayed 81 mg PO DAILY 06/15/20 01/17/23 History release vitamins A,C,H-sjwm-sknpsg 4,296 1 cap PO BID 06/15/20 01/17/23 History mcg-226 mg-90 mg capsule (PreserVision AREDS) pen needle, diabetic 32 gauge x #200 ea 02/21/22 01/17/23 Rx 1/4" (BD Ultra-Fine Micro Pen Needle) amlodipine 5 mg tablet 5 mg PO DAILY #90 tabs 09/23/22 01/17/23 Rx hydrochlorothiazide 25 mg tablet 25 mg PO DAILY #90 tabs 09/23/22 01/17/23 Rx insulin glargine 100 unit/mL (3 22 unit (0.22 mL) subcut DAILY #20 10/22/22 01/17/23 Rx mL) subcutaneous pen (Basaglar mL KwikPen U-100 Insulin) blood sugar diagnostic (OneTouch #200 ea 11/04/22 01/17/23 Rx Ultra Test strips) blood-glucose meter (OneTouch #1 ea 11/04/22 01/17/23 Rx Ultra2 Meter) amitriptyline 50 mg tablet 50 mg PO BID #180 tabs 12/06/22 01/17/23 Rx isosorbide mononitrate 120 mg 240 mg PO DAILY #180 tabs 12/13/22 01/17/23 Rx tablet,extended release 24 hr bimatoprost 0.01 % eye drops 1 drp OPR HS 01/17/23 01/17/23 History (Lumigan) timolol maleate 0.5 % eye drops 1 drp OPR QAM 01/17/23 01/17/23 History Past Med/Surg History Medical History Benign hypertension CAD (coronary artery disease) DM (diabetes mellitus), type 2 Hyperlipidemia Peripheral edema Surgical History History of appendectomy History of hysterectomy Hx laparoscopic cholecystectomy Status post open reduction and internal fixation (ORIF) of fracture Posterior Dislocation of Pelvic Ring Status post open reduction with internal fixation of fracture Pelvic Ring Family History Sister Colorectal cancer Lung cancer Family/Other Bladder cancer Denies family history of Ovarian cancer Myocardial infarction Breast cancer Social History Smoking Status: Never smoker Second Hand Exposure: No; Hx Alcohol Use: No Hx Substance Use: No Preferred Language: Macedonian Communication Ability: Effective Visual Impairment: No Limitations Hearing Ability: Normal Curing Press Operator Required: No Beliefs That Will Affect Care: None marital status: / Current Living Situation: Family current occupational status: retired Feels Safe at Home: Yes Safety Concerns: Feels Safe At This Time Physical Activity Frequency: Does not Exercise Seatbelt Use: always Assistive Devices: Glasses and Walker Review of Systems Review of Systems: Denies current fever, chills, headache, changes in vision, hearing, taste, and smell, chest pain, SOB, cough, abdominal pain, nausea, vomiting, diarrhea, hematemesis, melena, and lower extremity swelling All systems have been reviewed and are otherwise negative. Physical Exam Physical Exam: Physical Exam: General: In no acute distress, stated age, well-nourished, non-toxic appearing HEENT: Normocephalic, atraumatic, no scleral icterus, pupils around round, symmetrical, and reactive to light, dry mucus membranes, trachea midline, no thyromegaly Chest/Pulm: No respiratory distress, symmetrical chest expansion, clear breath sounds throughout Cardiac: RRR, systolic murmur noted Abdomen: Negative for ascites and bruising, normoactive bowel sounds, soft, non-tender to palpation throughout Musculoskeletal: No trauma or tenderness to palpation of the head, cervical spine, back, upper extremities, chest, abdomen, and BL LE's. Mild tenderness to palpation of the right hip, no leg length discrepancies or abnormal rotation noted Extremities: Radial, dorsalis pedis, and posterior tibial pulses are intact and symmetrical, no edema noted in the BL LE's Skin: Warm, dry, no rashes , lesions, or scars noted Neuro: Alert and oriented to person, place, month, no focal defects, CN II- XII tested and intact,no tremors noted Psych: No acute distress, calm and cooperative during the exam Results & Data Results & Data Vital Signs (Past 12 Hours) Vital Signs Temp Pulse Pulse Resp BP BP Pulse Ox 01/17/23 20:16 54 L 01/17/23 19:39 50 L 16 185/77 H 99 01/17/23 18:01 51 L 17 200/70 H 97 01/17/23 17:00 50 L 18 183/67 H 97 01/17/23 16:00 53 L 19 185/86 H 95 01/17/23 15:30 53 L 19 178/63 H 96 01/17/23 16:15 52 L 01/17/23 15:01 55 L 20 189/65 H 97 01/17/23 15:01 36.8 C 55 L 20 189/65 H 97 O2 Del Method 01/17/23 20:16 01/17/23 19:39 Room Air 01/17/23 18:01 Room Air 01/17/23 17:00 Room Air 01/17/23 16:00 Room Air 01/17/23 15:30 Room Air 01/17/23 16:15 01/17/23 15:01 Room Air 01/17/23 15:01 Room Air Laboratory Results Abnormal lab results 01/17/23 01/17/23 01/17/23 Range/Units 15:51 15:51 18:40 RBC 3.65 L (4.20-5.40) M/uL Hgb 11.5 L (12.0-16.0) g/dl Hct 34.5 L (37.0-47.0) % Immature Gran # (Auto) 0.00 L (0.01-0.20) K/uL Chloride 108 H (98-107) mmol/L BUN 28 H (6-23) mg/dl BUN/Creatinine Ratio 31.8 H (10-20) Glucose 107 H (70-99(Fasting)) mg/dl AST 12 L (13-39) U/L Alkaline Phosphatase 32 L (34-104) U/L Troponin I High Sens 19.3 H (0-14) pg/ml Total Protein 5.8 L (6.0-8.3) gm/dl Albumin 3.3 L (3.4-5.0) gm/dl Urine Appearance Cloudy A (Clear) Urine Blood 1+ H (Negative) Urine Nitrite Positive A (Negative) Ur Leukocyte Esterase 2+ H (Negative) Urine WBC (Auto) 10-30 H (0-5) /hpf Urine RBC (Auto) 5-10 H (0-4) /hpf U Epithel Cells (Auto) 5-10 H (0-5) /lpf Urine Bacteria (Auto) 2+ H (Negative) Diagnostic Findings Chest X-Ray 01/17/23 17:17 SINGLE VIEW CHEST CLINICAL HISTORY: Strokelike symptoms. Neurological deficit. FINDINGS: An AP, portable, upright chest radiograph is obtained. No prior studies are available for comparison at the time of dictation. There are calcified mediastinal and hilar lymph nodes. The cardiomediastinal silhouette is top normal for projection noting atherosclerotic calcification of the thoracic aorta. The pulmonary vasculature is noncongested. Mild scarring/atelectasis is noted at the lung bases. There are scattered calcified granulomas. No airspace consolidation or large pleural effusion is identified. No pneumothorax is seen. The skeletal structures are osteopenic. The bony thorax is grossly intact. Degenerative change is noted in the spine. IMPRESSION: No acute cardiopulmonary abnormality. ACT 112: Negative or not required by law. Electronically signed by: Prasanna Cooper M.D. 01/17/2023 6:[address] 01/17/23 17:17 Exam(s): CT HEAD Without Contrast EXAM: CT Head Without Intravenous Contrast CLINICAL HISTORY: Fall TECHNIQUE: Axial computed tomography images of the head/brain without intravenous contrast. CTDI is 37.69 mGy and DLP is 614.27 mGy-cm. Automated exposure control was utilized for the study. A dose lowering technique was utilized adhering to the principles of ALARA. COMPARISON: 09/14/12. FINDINGS: There is no intracranial hemorrhage or mass-effect. No clear acute large vessel territory infarct. Involutional and microvascular ischemic changes. Ventricular size is felt to be commensurate with atrophy. Atherosclerosis of skull base arteries. The calvarium is intact. Minimal paranasal sinus mucosal thickening. No sinus or mastoid effusion. Ocular lens prostheses. IMPRESSION: No acute brain or skull injury. Electronically signed by: Allan Molina M.D. 01/17/23 19:[address] 01/17/23 17:18 Exam(s): CT C SPINE EXAM: CT Cervical Spine Without Intravenous Contrast CLINICAL HISTORY: Reason for exam: fall. TECHNIQUE: Axial computed tomography images of the cervical spine without intravenous contrast. CTDI is 16.17 mGy and DLP is 308.58 mGy-cm. Automated exposure control was utilized for the study. A dose lowering technique was utilized adhering to the principles of ALARA. COMPARISON: No relevant prior studies available. FINDINGS: Vertebrae: No acute fracture. Discs/spinal canal/neural foramina: Multilevel spondylosis including disc degeneration and facet and uncovertebral arthropathy. Soft tissues: Extensive atherosclerotic calcification. Nodular thyroid gland with calcifications.. IMPRESSION: No acute fracture Electronically signed by: Allan Molina M.D. 01/17/23 19:51 PM ECG Additional Comments: No ECG available at the time of the admission, will obtain one now Code Status & VTE Plan Code Status DNR/DNI VTE Prophylaxis Plan VTE Prophylaxis will be ordered: Yes Supervising Physician Co-Signing Physician Notes Patient seen and examined, chart reviewed, case discussed with PERFECTO Ventura and I agree with the assessment and plan as documented above. In brief, Samantha Avila is an 87-year-old female with history of hypertension, hyperlipidemia and coronary artery disease presenting after a fall. Patient also with progressive weakness and ambulatory dysfunction. Some periorbital numbness now resolved On exam she is afebrile, bradycardic, hypertensive, NAD. Saturating well on RA. Resting comfortably in bed during my exam, NAD SKin - intact Heart - +S1/S2, regular Lungs - CTA Abd - soft, NTND Labs and images reviewed UA suggestive of UTI MRI with no acute infarct X-ray hips/pelvis with no obvious fracture Assessment/Plan - -PO Cefdinir PT/OT Patient does not want aggressive treatments Remainder as above PG Care Time/CCT Total # of Minutes Spent Total Time Spent with Patient: Total time spent is greater than 50% in coordination of care (as documented) at patient's floor/unit and/or counseling patient: Coding [place] [address] INT INP/OBS CARE 2/55MIN Patient Type Established Medical Decision Making Moderate Complexity Diagnoses Fall W19.XXXA UTI (urinary tract infection) N39.0 Elevated troponin R77.8 Ambulatory dysfunction R26.2 CAD (coronary artery disease) I25.10 Benign hypertension I10 DM (diabetes mellitus), type 2 E11.9
[2023-01-17] MEDS: INSULIN ASPART PER UNIT CHARGE SC SCH (20:56)
[2023-01-17] MEDS ORDERED: GADOBUTROL 65ML VIAL IV ONE (21:26)
--- NOTE | 2023-01-17 22:18 | Magnetic Resonance Report ---
Exam(s): MRI HEAD W/WO Contrast IV Amt: 6.5cc gadavist EXAM: MR Head Without and With Intravenous Contrast CLINICAL HISTORY: Stroke. TECHNIQUE: Magnetic resonance images of the head/brain without and with intravenous contrast in multiple planes. CONTRAST: Patient received 6.5cc Gadavist of IV contrast COMPARISON: CT head 12/20/2022 FINDINGS: Brain: No intracranial hemorrhage, mass-effect or midline shift. Mild periventricular white matter T2/FLAIR signal abnormalities are most consistent with chronic micro-angiopathy. No abnormal enhancement. No acute infarct. Ventricles: Unremarkable. No ventriculomegaly. Bones/joints: Unremarkable. Sinuses: Unremarkable as visualized. No acute sinusitis. Mastoid air cells: Large bilateral mastoid effusions. Orbits: Unremarkable as visualized. IMPRESSION: No acute infarct. Electronically signed by: Cat Lopez MD 01/17/23 22:17 PM
[2023-01-17] MEDS: CEFDINIR 300 MG CAP PO SCH ×2 (23:22→23:31)
[2023-01-17] MEDS: LANTUS PER UNIT CHARGE SQ SCH (23:35)
[2023-01-17] MEDS: AMITRIPTYLINE HCL 50 MG TAB PO SCH (23:38)
[2023-01-18] MEDS: INSULIN ASPART PER UNIT CHARGE SC SCH ×4 (02:48→20:32)
[2023-01-18 06:06] LABS: Basophils # (auto) 0.05 K/uL (0-0.2); Basophils % (auto) 0.7 %; Eosinophils % (auto) 4.3 %; Hematocrit (blood only) 35.4 % (37.0-47.0); Hemoglobin 11.7 g/dl (12.0-16.0); Immature Granulocytes # (auto) 0.01 K/uL (0.01-0.20); Immature Granulocytes % (auto) 0.1 %; Lymphocytes # (auto) 2.75 K/uL (1.2-3.4); Mean Corpuscular Hemoglobin 31.7 pg (25.0-34.0); Mean Corpuscular Hgb Conc 33.1 g/dL (32.0-36.0); Mean Corpuscular Volume 95.9 fL (80.0-100.0); Mean Platelet Volume 10.7 fL (9.4-12.4); Monocytes # (auto) 0.65 K/uL (0.11-0.59); Monocytes % (auto) 9.2 %; Neutrophils # (auto) 3.29 K/uL (1.40-6.50); Neutrophils % (auto) 46.7 %; Platelet Count 219 K/uL (130-400); RDW Coefficient of Variation 12.6 % (11.5-14.5); RDW Standard Deviation 44.5 fL (36.4-46.3); Red Blood Count 3.69 M/uL (4.20-5.40); White Blood Count 7.05 K/ul (4.8-10.8)
[2023-01-18 06:24] LABS: BUN Creatinine Ratio 26.6 (10-20); Creatinine Clr Calc Pharmacy 45.1 ml/min; Est GFR (Non-African American) 67.3 ml/min; Potassium 3.5 mmol/L (3.5-5.1)
[2023-01-18] MEDS ORDERED: CEFDINIR 300 MG CAP PO SCH (09:00)
[2023-01-18] MEDS: ASPIRIN 81 MG ECTAB PO SCH (09:01)
[2023-01-18] MEDS: AMITRIPTYLINE HCL 50 MG TAB PO SCH ×2 (09:01→20:31)
[2023-01-18] MEDS: hydroCHLOROthiazide 25 MG TAB PO SCH (09:01)
[2023-01-18] MEDS: amLODIPine BESYLATE 5 MG TAB PO SCH (09:01)
[2023-01-18] MEDS: ISOSORBIDE MONO EXTENDED REL 60 MG TABCR PO SCH (09:01)
[2023-01-18] MEDS: LANTUS PER UNIT CHARGE SQ SCH ×2 (09:11→20:32)
[2023-01-18] MEDS: TIMOLOL MALEATE 0.5% OP SOLN 5 ML BTL OP SCH (09:13)
--- NOTE | 2023-01-18 09:13 | XRay Report ---
SINGLE VIEW PELVIS; SINGLE VIEW RIGHT HIP; SINGLE VIEW LEFT HIP CLINICAL HISTORY: Fall. Right hip pain. FINDINGS: AP views the pelvis and frog leg views of both the right and left hip are obtained. No prio r studies are available for comparison at the time of dictation. The skeletal structures are osteopen ic. There is no radiographic evidence of acute fracture involving the hips or bony pelvis. Mild arthr itic change and joint space narrowing is seen in the hips. There is degenerative sclerosis of the sac roiliac joints. Lumbosacral spondylosis and scoliosis is partially visualized. The overlying soft tis sues are within normal limits. Advanced atherosclerotic calcification is seen in the femoral arteries . Phleboliths are noted in the pelvis. IMPRESSION: No acute bony abnormality is identified. Electronically signed by: Prasanna Cooper M.D. 01/18/2023 9:11 AM
[2023-01-18] MEDS ORDERED: NSS + 20MEQ KCL 20 MEQ/1,000 ML BAG IV SCH (09:30)
--- NOTE | 2023-01-18 11:32 | XCELERA ---
[id number] [id number]
[2023-01-18] MEDS ORDERED: cefTRIAXone SODIUM 1,000 MG in DEXTROSE 5% AD-VAN 50 ML IV SCH (12:00)
--- NOTE | 2023-01-18 12:23 | Electrocardiogram Report ---
Test Reason : Blood Pressure : / mmHG Vent. Rate : 051 BPM Atrial Rate : 051 BPM P-R Int : 176 ms QRS Dur : 136 ms QT Int : 376 ms P-R-T Axes : 037 -61 064 degrees QTc Int : 346 ms Sinus bradycardia Possible Left atrial enlargement Right bundle branch block Left anterior fascicular block Bifascicular block Possible Lateral infarct , age undetermined Abnormal ECG When compared with ECG of 14-SEP-2012 14:34, (RBBB and left anterior fascicular block) is now Present Borderline criteria for Lateral infarct are now Present Confirmed by Srinivasan Haile ([id number]) on 01/18/2023 12:23:16 PM Referred By: REFERRED SELF Confirmed By:Srinivasan Haile
--- NOTE | 2023-01-18 13:18 | Hospitalist Progress Note ---
Date of Service January 18, 2023 Assessment & Plan (1) Fall: Plan: Supportive care. OT and PT assessments requested. No fracture seen on x-rays . Head CT scan negative for bleed (2) UTI (urinary tract infection): Plan: The patient's son refuses IV fluids and IV antibiotics. Cultures remain pendi ng. She is on oral cefdinir. The patient and son understand that she is not being adequately treated with oral antibiotics and if she becomes septic this could result in her . (3) Elevated troponin: Plan: No evidence of acute coronary syndrome. Likely supply demand mismatch. We will follow. Telemetry (4) Ambulatory dysfunction: Plan: OT and PT ordered. Supportive carel (5) CAD (coronary artery disease): Plan: Stable. No chest pain. No acute EKG changes. Continue current medical management (6) Benign hypertension: Plan: Stable . Continue HCTZ, amlodipine, and Imdur (7) DM (diabetes mellitus), type 2: Plan: ADA diet. Basal insulin coverage. Sliding scale coverage as needed Plan To be determined. OT and PT assessments requested Admission and Anticipated Discharge Date Admission Date: January 17, 2023 Subjective Alert and oriented. She does not appear to be demented at baseline. She agreed to intravenous fluids and intravenous antibiotics which were ordered. The son then arrived and removed the IV himself. Apparently he has medical POA but she appears to be of sound mind at this time. I saw her again and now she says she wants to follow her son's advice. I explained to the son that we are not adequately treating her if she has a urinary tract infection. Blood cultures are not yet proven to be negative. The patient and the son understand that she is not being appropriately treated. He is considering taking her home AGAINST MEDICAL ADVICE anyway. OT and PT assessments requested. Will resume oral antibiotics. Review of Systems Review of Systems: Constitutional-no fever or chills ENT-no blurred vision, no double vision, no epistaxis, no sore throat Respiratory-no cough, no wheezing, no shortness of breath Cardiac-no palpitations, no chest pain, no syncope GI-no nausea, vomiting, diarrhea, melena, hematochezia -no urinary retention, no urinary incontinence, no dysuria, no hematuria Musculoskeletal-no joint pain, no muscle tenderness Skin-no bruising, no rashes, no pruritus Neuro-no isolated weakness, no paresthesia. She does have generalized weakness consistent with age Psych-no depression, no anxiety Physical Exam Physical Exam: General-alert and oriented x3, no fevers, no chills HEENT-head atraumatic and normocephalic, pupils equal and reactive to light, extraocular muscles intact Neck-no lymphadenopathy or thyromegaly, trachea midline Chest-clear to auscultation percussion. No rales wheezing or rhonchi Cardiac-regular rate and rhythm, normal S1 and S2 Abdomen-normal bowel sounds, nontender, no hepatosplenomegaly Extremities-no cyanosis, clubbing, or edema Neuro-cranial nerves II through XII intact, motor and sensory function within normal limits, strength symmetrical with generalized weakness, no focal deficits Psych-normal affect, normal mood Results & Data Results & Data Vital Signs (Past 12 Hours) Vital Signs Temp Pulse Pulse Resp BP BP Pulse Ox 01/18/23 07:30 36.7 C 53 L 18 159/65 H 94 01/18/23 07:15 52 L 01/18/23 04:00 36.7 C 65 18 157/69 H 94 O2 Del Method 01/18/23 07:30 Room Air 01/18/23 07:15 01/18/23 04:00 Room Air Laboratory Results 01/18/23 05:34 01/18/23 05:34 PG Care Time/CCT Total # of Minutes Spent Total Time Spent with Patient: Total time spent is greater than 50% in coordination of care (as documented) at patient's floor/unit and/or counseling patient: Coding Level of Care Code 15196 SUB INP/OBS CARE 3/50MIN Diagnoses Fall W19.XXXA UTI (urinary tract infection) N39.0 Elevated troponin R77.8 Ambulatory dysfunction R26.2 CAD (coronary artery disease) I25.10 Benign hypertension I10 DM (diabetes mellitus), type 2 E11.9
[2023-01-18] MEDS: CEFDINIR 300 MG CAP PO SCH (20:31)
[2023-01-18] MEDS: BIMATOPROST 0.01% OP SOLN 2.5 ML BTL OP SCH ×2 (20:31→20:35)
[2023-01-19 06:02] LABS: Hematocrit (blood only) 34.3 % (37.0-47.0); Hemoglobin 11.6 g/dl (12.0-16.0); Mean Corpuscular Hemoglobin 32.2 pg (25.0-34.0); Mean Corpuscular Hgb Conc 33.8 g/dL (32.0-36.0); Mean Corpuscular Volume 95.3 fL (80.0-100.0); Mean Platelet Volume 10.6 fL (9.4-12.4); Platelet Count 223 K/uL (130-400); RDW Coefficient of Variation 12.9 % (11.5-14.5); RDW Standard Deviation 45.1 fL (36.4-46.3); White Blood Count 6.31 K/ul (4.8-10.8)
[2023-01-19 06:18] LABS: BUN Creatinine Ratio 29.8 (10-20); Calcium 8.9 mg/dl (8.6-10.3); Creatinine Clr Calc Pharmacy 42.5 ml/min; Est GFR (African American) 72.4 ml/min; Est GFR (Non-African American) 62.5 ml/min; Potassium 3.5 mmol/L (3.5-5.1)
[2023-01-19 06:57] LABS: Basophils # (auto) 0.04 K/uL (0-0.2); Basophils % (auto) 0.6 %; Eosinophils # (auto) 0.38 K/uL (0-0.50); Lymphocytes # (auto) 3.41 K/uL (1.2-3.4); Monocytes # (auto) 0.68 K/uL (0.11-0.59); Monocytes % (auto) 10.8 %; Neutrophils % (auto) 28.6 %
[2023-01-19] MEDS: amLODIPine BESYLATE 5 MG TAB PO SCH (08:18)
[2023-01-19] MEDS: ASPIRIN 81 MG ECTAB PO SCH (08:19)
[2023-01-19] MEDS: CEFDINIR 300 MG CAP PO SCH ×2 (08:19→20:58)
[2023-01-19] MEDS: ISOSORBIDE MONO EXTENDED REL 60 MG TABCR PO SCH (08:19)
[2023-01-19] MEDS: AMITRIPTYLINE HCL 50 MG TAB PO SCH ×2 (08:19→20:58)
[2023-01-19] MEDS: hydroCHLOROthiazide 25 MG TAB PO SCH (08:20)
[2023-01-19] MEDS: TIMOLOL MALEATE 0.5% OP SOLN 5 ML BTL OP SCH (08:20)
[2023-01-19] MEDS: INSULIN ASPART PER UNIT CHARGE SC SCH ×4 (08:22→20:56)
[2023-01-19] MEDS: LANTUS PER UNIT CHARGE SQ SCH ×2 (08:23→20:56)
[2023-01-19 10:39] LABS: Thyroid Stimulating Hormone 1.64 uIu/ml (0.300-4.500)
[2023-01-19 10:42] LABS: T4 Free Thyroxine 1.03 ng/dl (0.61-1.60)
--- NOTE | 2023-01-19 12:50 | Hospitalist Progress Note ---
Date of Service January 19, 2023 Assessment & Plan (1) Fall: Plan: Supportive care. OT and PT assessments requested. No fracture seen on x-rays . Head CT scan negative for bleed (2) UTI (urinary tract infection): Plan: The patient's son refuses IV fluids and IV antibiotics. Cultures growing gram- negative rods. She is on oral cefdinir. The patient and son understand that she is not being adequately treated with oral antibiotics and if she becomes septic this could result in her . If family allows IV access, will switch to intravenous Rocephin until sensitivities and identification known. (3) Elevated troponin: Plan: No evidence of acute coronary syndrome. Likely supply demand mismatch. We will follow. Telemetry (4) Ambulatory dysfunction: Plan: OT and PT ordered. Supportive carel (5) CAD (coronary artery disease): Plan: Stable. No chest pain. No acute EKG changes. Continue current medical management (6) Benign hypertension: Plan: Stable . Continue HCTZ, amlodipine, and Imdur (7) DM (diabetes mellitus), type 2: Plan: ADA diet. Basal insulin coverage. Sliding scale coverage as needed (8) Junctional bradycardia: Plan: Timoptic ophthalmic drops have been discontinued. Consult cardiology. Thyroid profile is unremarkable. Telemetry. IV access necessary in the case intravenous atropine is needed Plan To be determined. OT and PT assessments requested. Sons may elect to take the patient home AGAINST MEDICAL ADVICE Admission and Anticipated Discharge Date Admission Date: January 17, 2023 Subjective Stable overall. However, telemetry reveals episodes of junctional bradycardia although she is asymptomatic. Timoptic ophthalmic drops have been discontinued. We will request cardiology consultation. She needs IV access in case atropine is needed. I explained this to her son and the patient but they remain hesitant. When I asked the patient why she came to the ED for hospitalization if she was not going to allow appropriate treatment she was unable to provide an answer. Gram-negative rods isolated in the urine. She is on oral cefdinir. If family allows IV access we will switch to intravenous Rocephin until identification is known and antibiotics can be tailored. Sons may decide to take the patient home at which point she will be discharged AGAINST MEDICAL ADVICE. Thyroid profile is unremarkable. Review of Systems Review of Systems: Constitutional-no fever or chills ENT-no blurred vision, no double vision, no epistaxis, no sore throat Respiratory-no cough, no wheezing, no shortness of breath Cardiac-no palpitations, no chest pain, no syncope GI-no nausea, vomiting, diarrhea, melena, hematochezia -no urinary retention, no urinary incontinence, no dysuria, no hematuria Musculoskeletal-no joint pain, no muscle tenderness Skin-no bruising, no rashes, no pruritus Neuro-no isolated weakness, no paresthesia. She does have generalized weakness consistent with age Psych-no depression, no anxiety Physical Exam Physical Exam: General-alert and oriented x3, no fevers, no chills HEENT-head atraumatic and normocephalic, pupils equal and reactive to light, extraocular muscles intact Neck-no lymphadenopathy or thyromegaly, trachea midline Chest-clear to auscultation percussion. No rales wheezing or rhonchi Cardiac-bradycardic regular rhythm. Normal S1 and S2. Aortic valve murmur systolic Abdomen-normal bowel sounds, nontender, no hepatosplenomegaly Extremities-no cyanosis, clubbing, or edema Neuro-cranial nerves II through XII intact, motor and sensory function within normal limits, strength symmetrical with generalized weakness, no focal deficits Psych-normal affect, normal mood Results & Data Results & Data Vital Signs (Past 12 Hours) Vital Signs Temp Pulse Pulse Resp BP BP Pulse Ox 01/19/23 11:09 36.8 C 56 L 16 118/70 96 01/19/23 09:30 01/19/23 07:42 36.7 C 43 L 16 134/57 L 96 01/19/23 07:24 43 L 01/19/23 02:40 36.7 C 55 L 16 165/64 H 96 O2 Del Method 01/19/23 11:09 Room Air 01/19/23 09:30 Room Air 01/19/23 07:42 Room Air 01/19/23 07:24 01/19/23 02:40 Room Air Laboratory Results 01/19/23 05:40 01/19/23 05:40 PG Care Time/CCT Total # of Minutes Spent Total Time Spent with Patient: Total time spent is greater than 50% in coordination of care (as documented) at patient's floor/unit and/or counseling patient: Coding Level of Care Code 11457 SUB INP/OBS CARE 3/50MIN Diagnoses Fall W19.XXXA UTI (urinary tract infection) N39.0 Elevated troponin R77.8 Ambulatory dysfunction R26.2 CAD (coronary artery disease) I25.10 Benign hypertension I10 DM (diabetes mellitus), type 2 E11.9 Junctional bradycardia R00.1
[2023-01-19] MEDS: BIMATOPROST 0.01% OP SOLN 2.5 ML BTL OP SCH (20:56)
[2023-01-20 07:24] LABS: Hematocrit (blood only) 33.5 % (37.0-47.0); Hemoglobin 11.4 g/dl (12.0-16.0); Mean Corpuscular Hemoglobin 32.6 pg (25.0-34.0); Mean Corpuscular Volume 95.7 fL (80.0-100.0); Mean Platelet Volume 10.9 fL (9.4-12.4); Platelet Count 226 K/uL (130-400); RDW Coefficient of Variation 12.8 % (11.5-14.5); RDW Standard Deviation 45.8 fL (36.4-46.3); White Blood Count 7.03 K/ul (4.8-10.8)
[2023-01-20 07:43] LABS: BUN Creatinine Ratio 28.4 (10-20); Calcium 8.9 mg/dl (8.6-10.3); Creatinine Clr Calc Pharmacy 40.5 ml/min; Est GFR (African American) 68.5 ml/min; Est GFR (Non-African American) 59.1 ml/min; Potassium 3.7 mmol/L (3.5-5.1)
[2023-01-20] MEDS: CEFDINIR 300 MG CAP PO SCH (08:08)
[2023-01-20] MEDS: INSULIN ASPART PER UNIT CHARGE SC SCH (08:08)
[2023-01-20] MEDS: AMITRIPTYLINE HCL 50 MG TAB PO SCH (08:08)
[2023-01-20] MEDS: amLODIPine BESYLATE 5 MG TAB PO SCH (08:09)
[2023-01-20] MEDS: ISOSORBIDE MONO EXTENDED REL 60 MG TABCR PO SCH (08:09)
[2023-01-20] MEDS: hydroCHLOROthiazide 25 MG TAB PO SCH (08:09)
[2023-01-20] MEDS: ASPIRIN 81 MG ECTAB PO SCH (08:10)
[2023-01-20] MEDS: LANTUS PER UNIT CHARGE SQ SCH (08:13)
[2023-01-20 08:14] LABS: Basophils # (auto) 0.06 K/uL (0-0.2); Basophils % (auto) 0.9 %; Eosinophils # (auto) 0.32 K/uL (0-0.50); Eosinophils % (auto) 4.6 %; Immature Granulocytes # (auto) 0.01 K/uL (0.01-0.20); Immature Granulocytes % (auto) 0.1 %; Lymphocytes # (auto) 3.77 K/uL (1.2-3.4); Lymphocytes % (auto) 53.6 %; Monocytes # (auto) 0.78 K/uL (0.11-0.59); Monocytes % (auto) 11.1 %; Neutrophils # (auto) 2.09 K/uL (1.40-6.50); Neutrophils % (auto) 29.7 %
[2023-01-20] MEDS ORDERED: INSULIN ASPART PER UNIT CHARGE SC SCH (11:30)
[2023-01-20] MEDS ORDERED: STROKE PATIENT DISCHARGE STA (12:25)
--- NOTE | 2023-01-20 12:31 | Discharge Summary ---
Date of Service January 20, 2023 Admission HPI Per Admitting Provider Samantha Winston is an 87 year old female with a PMH significant for HTN, dyslipidemia (no longer on statin therapy due to patient preference), DM II, and CAD who presented to the [facility] ED via EMS on 01/17/23 due to a fall and ambulatory dysfunction. In the ED the patient was found to be afebrile, hemodynamically stable, and stable on RA. Labs were remarkable for a WBC WNL, stable Hgb at 11.5, stable platelets, stable cr at 0.88, chloride of 108, glucose of 107, Alk phos of 32, AST of 12, ALT and total bili WNL, UA indicative of acute UTI, and covid negative. Chest xray was read as "No acute cardiopulmonary abnormality.". CT of the head was read as "No acute brain or skull injury.". CT of the cervical spine was read as "No acute fracture". Prior to admission the patient was given a dose of PO Cefdinir. At the time of the exam the patient was resting in bed in no acute distress with her Son/POA sitting bedside, history was obtained from both. Her son explains that the patient has been having progressive weakness and ambulatory dysfunction over the past two weeks. She currently lives at home with he and his but is normally fairly independent with her ADLs. She lives in the lower floor of their house and uses a rolling walker to ambulate at baseline. Her son states that they have been on the waiting list for [facility] since September for their long-term living facility. He states that this am the patient had a fall while walking back from the bathroom to her bed. The patient explains that she walked back to her bed, which has side-rails, and attempted to get back into bed by grabbing the side rail with her right hand. Unfortunately, due to her weakness her hand slip and she fell to the ground. She states that she hit the right side of her head and did not lose consciousness. She was able to lift herself back into bed without any assistance. When her son woke up he came down to check on her and she was too weak to get out of bed. He thought he noticed drooping of her right eyelid and she felt numbness on her right upper and lower extremity when he tested her sensation. He called her PCP who recommended she go to the ED for further evaluation. He also called her Beekeeper Farmer, Dr. Mansfield, who recommended she be evaluated in the ED. The patient's son and his are unable to care for the patient at this time due to her increased ambulatory dysfunction. They would like her to be admitted for placement in [facility]. When asked, the patient has been experiencing dysuria and increased urinary frequency. I had a long discussion with the patient and her son regarding goals of care as there had been some confusion as to her wishes on intake. The patient has a living will and her son is her POA, he brought the documentation with him. The patient is a DNR/DNI and does not want excessive treatment at this time. She does not want an IV, IV fluids, or IV medications. She is fine with oral antibiotics and medications for easily treatable medical conditions which are causing her distress. She is still ok with blood draws for needed labs and blood glucose checks with insulin as needed. She is NOT on comfort measures or on hospice at this time. Please refer to Dr. Sosa's attestation for any changes to the treatment plan Principal Diagnosis Ambulatory dysfunction, UTI, fall, junctional bradycardia Discharge Exam Constitutional WD/WN, vitals as above Eyes + anicteric sclerae Respiratory normal respiratory effort, lungs clear to auscultation Cardiovascular Rate/Rhythm: regular rate and regular rhythm Heart Sounds: + murmur (3/6 DINORA at RUSB) Gastrointestinal (Abdomen) normal bowel sounds, soft, nontender, no hepatosplenomegaly Neurologic PERRL, EOMI, accommodation nl, no face palsy, no dysarthria Psychiatric A+Ox3, euthymic affect Discharge Data Allergies Allergy/AdvReac Type Severity Reaction Status Date / Time codeine Allergy Unknown GI UPSET Verified 10/22/22 11:06 AND SOB PER PT iodine Allergy Unknown Verified 10/22/22 11:06 Penicillins Allergy Unknown Verified 10/22/22 11:06 Sulfa (Sulfonamide Allergy Unknown Verified 10/22/22 11:06 Antibiotics) Consultations 01/17/23 19:46 ED Decision to Admit Stat 01/19/23 09:34 Consult Cardiology Routine Ordered Studies 01/17/23 17:17 CT head/brain wo con Stat 01/17/23 17:18 CT cervical spine wo con Stat 01/17/23 20:26 MR brain wo/w con Routine ECHO Hospital Course (1) Fall: Supportive care. OT and PT assessments requested. No fracture seen on x-rays . Head CT scan negative for bleed 2/2 UTI No syncope. ECHO with mod-severe but not likely contributing. Has asymptoamtic junctional breanne here at times with rates into the 50s, no indication for pacer (2) UTI (urinary tract infection): Ur cx with pansens E. Coli She is on oral cefdinir. Treated with Rocephin and then cefdinir--> finish out 7 day course (3) Elevated troponin: No evidence of acute coronary syndrome. Likely supply demand mismatch. no WMAs on ECHO with preserved EF (4) Ambulatory dysfunction: OT and PT ordered. Supportive carel-needs rehab (5) CAD (coronary artery disease): Stable. No chest pain. No acute EKG changes. Continue current medical management (6) Benign hypertension: Stable . Continue HCTZ, amlodipine, and Imdur (7) DM (diabetes mellitus), type 2: ADA diet Cut Lantus in half to 10 units on discharge due to much lower requirements here (8) Junctional bradycardia: Timoptic ophthalmic drops have been discontinued due to junctional bradycardia Consult cardiology-appreciated . Thyroid profile is unremarkable. Rates in 50-60s, junctional episodes last 1 min and are asymptomatic no pacer indicated at this time and regardless, she reports she would not want a pacer advised to report any symptoms in future of lightheadedness or passing out Plan Dispo-medically stable for dc to SNF at [facility] today Total Time Total Time Spent Total Time Spent (In Minutes): 35 min Total Time Includes: Examination of the Patient, Discharge Planning, Medication Reconciliation and Communication With Other Providers (Dr. Mansfield of Cardiology) Discharge Plan Discharge Items Patient Disposition: Transfer Half-Way Fac Reason For Visit: FALL, AMBULAORY DYSFUNCTION Discharge Diagnosis: Fall, ambulatory dysfunction, UTI, Junctional bradycardia Condition on Discharge: Good Activity: As commented below Lifting: Gradually increase as tolerated Bathing: No limitations Exercise/Sports: Gradually increase as tolerated Exercise Comment: with PT/OT Non-emergency contact: Primary Care Provider and Beekeeper Farmer Call non-emergency contact if: you have any medication questions and your symptoms worsen Follow-up/Referrals: Ky Mansfield MD [Physician] - (Follow up within 2 weeks.) Baitel,Jasmin, MD [Primary Care Provider] - Diet: Carb Consistent or DM2 Diet Texture: Mechanical soft (ground) Diet Comment: Minced and Moist diet Addtl Attending Provider Instructions: Please finish out 3.5 more days of the antibiotic for your UTI. Your heart rate at times is slightly low and you have an abnormal heart rhythm called a junctional rhythm. This is not causing you any problems at this point and you do not desire a pacemaker regardless. Please follow up with your Beekeeper Farmer within the next 2 weeks. Your timolol eye drop was DISCONTINUED as this may be contributing to your low heart rate. Please follow up with your eye doctor to make sure they know about this medication change. You will need PT/OT for strengthening at the rehab. Pending Studies at Discharge: No Stand-Alone Forms: My [facility] [employer] Skilled Items Patient informed of condition?: Yes DNR: Yes Discharge Level of Care: Skilled Communicable Disease: Yes Discharge Prognosis: Improving Lines: None Urinary Catheter: No Medications and DC Order Prescriptions: New cefdinir 300 mg Capsule 300 mg PO BID Qty: 7 0RF Continued (DME) Manual Wheelchair Device See Dose Instructions .ROUTE .MEDSUPPLY Qty: 1 0RF Dose Instruction: As directed Rx Instructions: As directed (DME) pen needle, diabetic [BD Ultra-Fine Micro Pen Needle] 32 gauge x 1/4" needle See Dose Instructions .ROUTE .MEDSUPPLY Qty: 200 1RF Dose Instruction: As directed Rx Instructions: Uses two daily Dx: E11.9 amlodipine 5 mg tablet 5 mg PO DAILY Qty: 90 1RF hydrochlorothiazide 25 mg tablet 25 mg PO DAILY Qty: 90 1RF (DME) blood-glucose meter [OneTouch Ultra2 Meter] [facility] See Rx Instructions .Route Qty: 1 0RF Rx Instructions: As directed to test sugar daily E11.9 (DME) OneTouch Ultra Test Strip See Rx Instructions .Route Qty: 200 3RF Rx Instructions: testing BID and as needed in between- DX CODE E11.9 amitriptyline 50 mg tablet 50 mg PO BID Qty: 180 2RF isosorbide mononitrate 120 mg tablet extended release 24 hr 240 mg PO DAILY Qty: 180 3RF cholecalciferol (vitamin D3) 3,000 unit tablet 3,000 units PO DAILY PreserVision AREDS [id number] capsule 1 cap PO BID aspirin 81 mg tablet,delayed release (DR/EC) 81 mg PO DAILY Lumigan 0.01 % drops 1 drp OPR HS Changed insulin glargine [Basaglar KwikPen U-100 Insulin] 100 unit/mL (3 mL) insulin pen 10 unit SQ DAILY Qty: 20 5RF Discontinued timolol maleate 0.5 % drops 1 drp OPR QAM Discharge Orders: Discharge Order (Routine); Ordered 01/20/23 Ordered By: Sandra Wilkinson Admission Data Admit Date/Time: 01/17/23 20:26 Attending Provider: Sandra Wilkinson Admit Provider: Khadijah Sosa Primary Care Provider: Jasmin Rowley Other Providers: Khadijah Sosa ; Jeff Calvillo ; Bonifacio Mendoza ; Srinivasan Haile ; Jorge Crawford ; Stu Murphy ; Ivan Tran Jr ; Demarcus Mayer ; Libby Fu ; Jennifer Byers ; Ky Mansfield ; Fabián Cooper ; Manuel Baldwin ; Edith Butler ; Linda Jones ; Richi Bullard ; Ian Marie ; Jose Leone ; Jorge Anderson V. ; [facility] Other Interventions: Discharge Summary Assessment (RN) Last Done: 01/20/23 10:34 Coding Level of Care Code 30655 INP/OBS DISCH >30 MIN Diagnoses Fall W19.XXXA UTI (urinary tract infection) N39.0 Elevated troponin R77.8 Ambulatory dysfunction R26.2 CAD (coronary artery disease) I25.10 Benign hypertension I10 DM (diabetes mellitus), type 2 E11.9 Junctional bradycardia R00.1
[2023-01-20] MEDS ORDERED: INSULIN ASPART PER UNIT CHARGE SC ONE (13:43)
[2023-01-20] MEDS ORDERED: LANTUS PER UNIT CHARGE SQ ONE (13:43)
[2023-01-20] MEDS ORDERED: LANTUS PER UNIT CHARGE SQ SCH (21:00)
== END 2023-01-20 13:44 | DRG 690 ==
LOC: ED 14:53 → SUATTDRO 20:26 → 2N 20:26